=== PATIENT | female | born 1965 | race Caucasian/White ===

== ENCOUNTER 2016-08-04 19:59 | Emergency (ER) | payer MEDICAID ==
--- NOTE | 2016-08-04 20:59 | ER Document Report ---
ED Medical Screen (RME) - General Stated Complaint: BACK PAIN,URINARY ISSUES Notes: patient is a 51 year old female p/w chronic back pain from bulging disc and skin crawling feeling, no evidence of rash. Patient states that this sensation is not new for her and her previous medications have managed these symptoms patient admits to urinary frequency, urgency without pyuria, hematuria. over the past two days admits to loose bm's that started today saturation is 97% on room air, not 87% as documented on captured vitals. I have greeted and performed a rapid initial assessment of this patient. A comprehensive ED assessment and evaluation of the patient, analysis of test results and completion of the medical decision making process will be conducted by additional ED providers. TRAVEL OUTSIDE OF THE [place] IN LAST 30 DAYS: No - Related Data Allergies/Adverse Reactions: No Known Allergies Allergy (Unverified 04/27/11 21:31) Past Medical History - Past Medical History Cardiac Medical History: Reports: Hx Hypertension - on meds Denies: Hx Coronary Artery Disease Pulmonary Medical History: Denies: Hx Asthma, Hx Bronchitis, Hx COPD, Hx Pneumonia Neurological Medical History: Denies: Hx Cerebrovascular Accident, Hx Seizures Musculoskeltal Medical History: Denies Hx Arthritis Past Surgical History: Reports: Hx Section - x 2 - Immunizations Hx Diphtheria, Pertussis, Tetanus Vaccination: Yes Physical Exam - Vital signs Vitals: Temp Pulse Resp BP Pulse Ox 98.0 F 87 16 147/75 H 87 L 08/04/16 20:37 08/04/16 20:37 08/04/16 20:37 08/04/16 20:37 08/04/16 20:37 Course - Vital Signs Vital signs: Temp Pulse Resp BP Pulse Ox 98.0 F 87 16 147/75 H 87 L 08/04/16 20:37 08/04/16 20:37 08/04/16 20:37 08/04/16 20:37 08/04/16 20:37
[2016-08-04] MEDS ORDERED: NAPROXEN 250 MG TABLET PO ONE (21:00)
[2016-08-04 21:26] LABS: APPEARANCE,URINE CLOUDY; BILIRUBIN,URINE NEGATIVE (NEGATIVE); GLUCOSE, URINE NEGATIVE (NEGATIVE); KETONES,URINE NEGATIVE (NEGATIVE); LEUKOCYTE ESTERASE,URINE LARGE (NEGATIVE); NITRITE,URINE NEGATIVE (NEGATIVE); PROTEIN,URINE NEGATIVE (NEGATIVE); URINE SPECIFIC GRAVITY 1.014; UROBILINOGEN,URINE NEGATIVE mg/dL (<2.0)
--- NOTE | 2016-08-04 22:09 | ER Document Report ---
HPI - HPI Patient complains to provider of: urinary frequency, chronic back pain Onset: Other - 1-2 days Quality of pain: Achy Severity: Severe Pain Level: 4 Context: She presents to the emergency department with complaints of chronic back pain, feels like bugs crawling on her legs and urinary frequency. She reports chronic back pain and restless legs for over a year. She also reports urinary frequency for the past day or 2. She denies pain with void. She denies fever vomiting. She reports she is waiting for her Medicaid to get approved and she has not had her medications since May. Associated Symptoms: None Exacerbated by: Denies Relieved by: Denies Similar symptoms previously: Yes Recently seen / treated by doctor: No - REPRODUCTIVE LMP: 2014 Reproductive: DENIES: : - DERM Skin Color: Normal Past Medical History - General Information source: Patient Last Menstrual Period: 08/2014 - Social History Smoking Status: Former Smoker Chew tobacco use (# tins/day): No Frequency of alcohol use: None Drug Abuse: None Occupation: none Lives with: Family Family History: Other - restless legs Patient has suicidal ideation: No Patient has homicidal ideation: No - Past Medical History Cardiac Medical History: Reports: Hx Hypertension - on meds Denies: Hx Coronary Artery Disease Pulmonary Medical History: Denies: Hx Asthma, Hx Bronchitis, Hx COPD, Hx Pneumonia Neurological Medical History: Denies: Hx Cerebrovascular Accident, Hx Seizures Renal/ Medical History: Denies: Hx Peritoneal Dialysis Musculoskeltal Medical History: Denies Hx Arthritis Psychiatric Medical History: Reports: Hx Anxiety, Hx Depression, Hx Post Traumatic Stress Disorder Past Surgical History: Reports: Hx Section - x 2, Hx Gynecologic Surgery - essure - Immunizations Hx Diphtheria, Pertussis, Tetanus Vaccination: Yes Vertical Provider Document - CONSTITUTIONAL Agree With Documented VS: Yes Exam Limitations: No Limitations General Appearance: WD/WN, No Apparent Distress - INFECTION CONTROL TRAVEL OUTSIDE OF THE [place] IN LAST 30 DAYS: No - HEENT HEENT: Atraumatic, Normocephalic - NECK Neck: Normal Inspection, Supple - RESPIRATORY Respiratory: Breath Sounds Normal, No Respiratory Distress O2 Sat by Pulse Oximetry: 97 - CARDIOVASCULAR Cardiovascular: Regular Rate - GI/ABDOMEN Gastrointestinal: Abdomen Non-Tender - BACK Back: Normal Inspection - No obvious deformity no weakness good distal movement and sensation patient reports pain mostly on her right low back - MUSCULOSKELETAL/EXTREMETIES Musculoskeletal/Extremeties: MAEWREGGIE - NEURO Level of Consciousness: Awake, Alert, Appropriate Motor/Sensory: No Motor Deficit - DERM Integumentary: Warm, Dry Adult Front & Back Diagram: 1 - c/o chronic low back pain Course - Re-evaluation Re-evalutation: 08/04/16 While I was discussing plan of care with patient, patient access came in the room and informed the patient that her Medicaid has been approved. Patient is very thankful, tearful. Pt prescribed a xanax dose and septra here. She was instructed on signs and symptoms of allergic reaction to Septra. She verbalized understanding to all instructions. Patient is very excited that she can now follow up with her doctor. - Vital Signs Vital signs: Temp Pulse Resp BP Pulse Ox 98.0 F 87 16 147/75 H 97 08/04/16 20:37 08/04/16 20:37 08/04/16 20:59 08/04/16 20:37 08/04/16 20:59 - Laboratory Laboratory results interpreted by me: 08/04/16 21:05 Urine Blood SMALL H Ur Leukocyte Esterase LARGE H Discharge - Discharge Clinical Impression: Urinary frequency, Elevated blood pressure reading UTI (urinary tract infection) Qualifiers: Urinary tract infection type: site unspecified Hematuria presence: with hematuria Qualified Code(s): N39.0 - Urinary tract infection, site not specified ; R31.9 - Hematuria, unspecified Chronic back pain Qualifiers: Back pain location: low back pain Back pain laterality: right Sciatica presence : without sciatica Qualified Code(s): M54.5 - Low back pain; G89.29 - Other chronic pain Condition: Stable Disposition: HOME, SELF-CARE Instructions: Trimethoprim-Sulfa ([facility]), Urinary Tract Infection ([facility]), Chronic Back Pain ([facility]) Additional Instructions: *You have been evaluated for urinary frequency, UTI *Take medication as prescribed *Push fluids *Follow up with a primary care provider within one week for recheck *Plan urine recheck in one week *Return to ED for worsening condition, changes, needs Monitor your blood pressure. Your blood pressure was elevated today. This may be because you were anxious, in pain or because you need medication. It is important to follow up with your primary care provider for full evaluation. Prescriptions: Sulfamethoxazole/Trimethoprim [Bactrim Ds Tablet] 1 each PO BID #10 tablet Forms: Elevated Blood Pressure
[2016-08-04] MEDS ORDERED: ALPRAZOLAM 0.5 MG TABLET PO ONE (22:10)
[2016-08-04] MEDS ORDERED: SULFAMETHOXAZOLE/TRIMETHOPRIM 800-160 MG TABLET PO ONE (22:10)
[2016-08-04 22:33] VITALS: BP 143/92
== END 2016-08-04 22:33 | disposition home or self-care (01) ==
LOC: ER 19:59
DX: N39.0 Urinary tract infection, site not specified (principal); R35.0 Frequency of micturition; M54.5 Low back pain; R03.0 Elevated blood-pressure reading, without diagnosis of hypertension; M54.9 Dorsalgia, unspecified; G89.29 Other chronic pain; Z87.891 Personal history of nicotine dependence
CPT/HCPCS: 99283; 87086; 81025; 87088; 81001; J3490 ×3

== ENCOUNTER → 2016-08-22 | Outpatient (CLI) | payer MEDICAID | LOC: WI 09:47 | PROVIDERS: ATTEND Internal Medicine | DX: Z12.31 Encounter for screening mammogram for malignant neoplasm of breast (principal); M54.16 Radiculopathy, lumbar region | CPT/HCPCS: 72148; G0202; 77067 ==

== ENCOUNTER 2017-07-13 09:04 | Emergency (ER) | payer SELFPAY ==
--- NOTE | 2017-07-13 09:40 | ER Document Report ---
ED General - General Chief Complaint: Chest Pain Stated Complaint: CHEST PAIN Time Seen by Provider: 07/13/17 09:39 TRAVEL OUTSIDE OF THE [place] IN LAST 30 DAYS: No - HPI Patient complains to provider of: denies chest pain Notes: Patient denies chest pain to me. Patient states her main concern is her throbbing pounding headache 10/10 without radiation nothing made it better or worse. Started 2 days ago. Patient also has had a cough and her chronic back pain has been exacerbated as has her fibromyalgia. Patient has been out of medications for 2 months because her Medicaid lapsed she has not been to follow- up with family doctor because of the request for co-pay at that office. Presents to the emergency department looking for medications refill and symptom relief. - Related Data Allergies/Adverse Reactions: No Known Allergies Allergy (Verified 08/04/16 21:48) Past Medical History - Social History Smoking Status: Unknown if Ever Smoked Family History: Other - restless legs - Past Medical History Cardiac Medical History: Reports: Hx Hypertension - on meds Denies: Hx Coronary Artery Disease Pulmonary Medical History: Denies: Hx Asthma, Hx Bronchitis, Hx COPD, Hx Pneumonia Neurological Medical History: Denies: Hx Cerebrovascular Accident, Hx Seizures Renal/ Medical History: Denies: Hx Peritoneal Dialysis Musculoskeltal Medical History: Denies Hx Arthritis Psychiatric Medical History: Reports: Hx Anxiety, Hx Depression, Hx Post Traumatic Stress Disorder Past Surgical History: Reports: Hx Section - x 2, Hx Gynecologic Surgery - essure - Immunizations Hx Diphtheria, Pertussis, Tetanus Vaccination: Yes Review of Systems - Review of Systems Constitutional: No symptoms reported EENT: No symptoms reported Cardiovascular: No symptoms reported Respiratory: Cough Gastrointestinal: No symptoms reported Genitourinary: No symptoms reported Female Genitourinary: No symptoms reported Musculoskeletal: Back pain, Muscle pain Skin: No symptoms reported Hematologic/Lymphatic: No symptoms reported Neurological/Psychological: No symptoms reported Physical Exam - Vital signs Vitals: Temp Pulse Resp BP Pulse Ox 97.6 F 97 20 91/42 L 93 07/13/17 09:19 07/13/17 09:19 07/13/17 09:19 07/13/17 09:19 07/13/17 09:19 Course - Re-evaluation Re-evalutation: 07/13/17 09:49 Morbidly obese female BMI greater than 50 presents with a constellation of long- standing chronic issues. Has not been able to see her family doctor for months been out of her pain medication. 07/13/17 11:25 Patient presents with some vague complaints. Chest x-ray reading for possible pneumonia left lower lobe. Extensive lab workup unremarkable, no leukocytosis or any other issues. Given fluid resuscitation, headache cocktail feeling much improved will be discharged home with prescription for doxycycline and follow- up with her family doctor given strict return precautions - Vital Signs Vital signs: Temp Pulse Resp BP Pulse Ox 97.6 F 97 16 96/53 L 93 07/13/17 09:19 07/13/17 09:19 07/13/17 10:02 07/13/17 10:02 07/13/17 10:02 - Laboratory Result Diagrams: 07/13/17 09:50 07/13/17 09:50 Laboratory results interpreted by me: 07/13/17 07/13/17 09:50 09:50 Seg Neutrophils % 86.0 H Lymphocytes % 7.5 L Absolute Neutrophils 8.8 H Sodium 135.1 L Potassium 3.5 L Glucose 209 H - EKG Interpretation by Me Additional EKG results interpreted by me: 07/13/17 09:51 Normal sinus 97 bpm, no ST elevations or depressions, normal QRS, no pathologic T-wave inversions Discharge - Discharge Clinical Impression: Pneumonia Qualifiers: Pneumonia type: due to unspecified organism Laterality: left Lung location: lower lobe of lung Qualified Code(s): J18.1 - Lobar pneumonia, unspecified organism Condition: Stable Disposition: HOME, SELF-CARE Instructions: Viral Pneumonia ([facility]), Pneumonia ([facility]) Prescriptions: Doxycycline Hyclate 100 mg PO BID #14 capsule
[2017-07-13] MEDS ORDERED: METOCLOPRAMIDE HCL INJ/PF 10 MG/2 ML SDV IV ONE (09:46)
[2017-07-13] MEDS ORDERED: ACETAMINOPHEN 325 MG TABLET PO ONE (09:46)
[2017-07-13] MEDS ORDERED: NORMAL SALINE 1000 ML 1,000 ML IV ONE (09:46)
[2017-07-13] MEDS ORDERED: DIPHENHYDRAMINE HCL 50 MG/ML VIAL IV ONE (09:47)
[2017-07-13 10:13] LABS: ABSOLUTE BASOPHILS # (AUTO) 0.1 10^3/uL (0.0-0.2); ABSOLUTE LYMPHOCYTES (AUTO) 0.8 10^3/uL (0.5-4.7); ABSOLUTE MONOCYTES (AUTO) 0.6 10^3/uL (0.1-1.4); ABSOLUTE NEUT (AUTO) 8.8 10^3/uL (1.7-8.2); BASOPHILS % (AUTO) 0.5 % (0-2); EOSINOPHILS % (AUTO) 0.3 % (0-6); HEMATOCRIT 39.4 % (36.0-47.0); HEMOGLOBIN 13.3 g/dL (12.0-15.5); LYMPHOCYTES % (AUTO) 7.5 % (13-45); MEAN CORPUSCULAR HEMOGLOBIN 29.1 pg (27.0-33.4); MEAN CORPUSCULAR HGB CONC 33.8 g/dL (32.0-36.0); MEAN CORPUSCULAR VOLUME 86 fl (80-97); MONOCYTES % (AUTO) 5.7 % (3-13); PLATELET COUNT 258 10^3/uL (150-450); RED BLOOD COUNT 4.57 10^6/uL (3.72-5.28); TOTAL CELLS COUNTED % (AUTO) 100 %; WHITE BLOOD COUNT 10.3 10^3/uL (4.0-10.5)
--- NOTE | 2017-07-13 10:31 | RADIOLOGY REPORT (SQ) ---
EXAM DESCRIPTION: CHEST PA/LAT COMPLETED DATE/TIME: 07/13/2017 10:14 am REASON FOR STUDY: cough COMPARISON: 04/27/2011 EXAM PARAMETERS: NUMBER OF VIEWS: two views TECHNIQUE: Digital Frontal and Lateral radiographic views of the chest acquired. RADIATION DOSE: NA LIMITATIONS: none FINDINGS: LUNGS AND PLEURA: Minimal parenchymal opacity in the left midzone. Right lung is clear. MEDIASTINUM AND HILAR STRUCTURES: No masses or contour abnormalities. HEART AND VASCULAR STRUCTURES: Heart normal size. No evidence for failure. BONES: No acute findings. HARDWARE: None in the chest. OTHER: No other significant finding. IMPRESSION: Minimal parenchymal opacity in the left midzone. TECHNICAL DOCUMENTATION: JOB ID: [id number] [employer]- All Rights Reserved
[2017-07-13 10:37] LABS: ALANINE AMINOTRANSFERASE 37 U/L (9-52); ALBUMIN 3.9 g/dL (3.5-5.0); ALKALINE PHOSPHATASE 112 U/L (38-126); ANION GAP 10 (5-19); ASPARTATE AMINO TRANSFERASE 28 U/L (14-36); BILIRUBIN,DIRECT 0.2 mg/dL (0.0-0.4); BILIRUBIN,TOTAL 1.3 mg/dL (0.2-1.3); BLOOD UREA NITROGEN 10 mg/dL (7-20); CALCIUM 9.4 mg/dL (8.4-10.2); CARBON DIOXIDE 24 mmol/L (22-30); CHLORIDE 101 mmol/L (98-107); CREATINE KINASE 35 U/L (30-135); GLUCOSE 209 mg/dL (75-110); LIPASE 51.2 U/L (23-300); POTASSIUM 3.5 mmol/L (3.6-5.0); SODIUM 135.1 mmol/L (137-145); TOTAL PROTEIN 6.9 g/dL (6.3-8.2)
[2017-07-13 11:46] VITALS: BP 116/58
--- NOTE | 2017-07-14 11:08 | EKG REPORT ---
SEVERITY:- ABNORMAL ECG - SINUS RHYTHM VENTRICULAR PREMATURE COMPLEX PROBABLE LEFT ATRIAL ABNORMALITY PROBABLE INFERIOR INFARCT, AGE INDETERMINATE : Confirmed by: Bethany Alamo 14-Jul-2017 11:07:15
== END 2017-07-13 11:48 | disposition home or self-care (01) ==
LOC: ER 09:04
DX: J18.1 Lobar pneumonia, unspecified organism (principal); R51 Headache; R05 Cough; M79.7 Fibromyalgia; M54.9 Dorsalgia, unspecified; G89.29 Other chronic pain; I10 Essential (primary) hypertension
CPT/HCPCS: 93005; 99285; 96361; 96374; 96375; 36415; 82550; 83690; 85025; 80053; 84484; 71046; 93010; J1200; J2765; J7030

== ENCOUNTER 2018-07-02 22:51 | Emergency (ER) | payer SELFPAY ==
[2018-07-03] MEDS ORDERED: DIPH/PERTUSS(ACELL)/TETANUS VAC/PF 0.5 ML SYR (>=10YO) IM ONE (00:32)
[2018-07-03] MEDS ORDERED: LIDOCAINE 1% INJ-PF (10 MG/ML) 30 ML SDV INJ ONE (01:08)
[2018-07-03] MEDS ORDERED: HYDROCODONE/ACETAMINOPHEN 5-325 MG TABLET PO ONE (01:09)
--- NOTE | 2018-07-03 01:46 | RADIOLOGY REPORT (SQ) ---
EXAM DESCRIPTION: XR HAND 1-2 VIEWS COMPLETED DATE/TME: 07/03/2018 00:00 CLINICAL HISTORY: 52 years, Female, r/o FB COMPARISON: None. FINDINGS: No fracture or dislocation. Soft tissues are unremarkable. No radiopaque foreign bodies. IMPRESSION: No acute abnormality.
--- NOTE | 2018-07-03 02:06 | ER Document Report ---
HPI - HPI Time Seen by Provider: 07/03/18 00:55 Pain Level: 5 Context: Patient is a 52-year-old female who presents to the emergency department with a chief complaint of a cut to her left hand. The cut is on the medial aspect of the PIP joint. She was using a knife to cut and avocado and sliced her finger. This happened at 2230 this evening. She does not know when her last tetanus shot was. She states the pain is in excruciating pain. She has not taken any med ication to help with her symptoms. - REPRODUCTIVE Reproductive: DENIES: : Past Medical History - Social History Smoking Status: Never Smoker Frequency of alcohol use: Occasional Family History: Other - restless legs Patient has suicidal ideation: No Patient has homicidal ideation: No - Past Medical History Cardiac Medical History: Reports: Hx Hypertension - on meds Denies: Hx Coronary Artery Disease Pulmonary Medical History: Denies: Hx Asthma, Hx Bronchitis, Hx COPD, Hx Pneumonia Neurological Medical History: Denies: Hx Cerebrovascular Accident, Hx Seizures Renal/ Medical History: Denies: Hx Peritoneal Dialysis Musculoskeletal Medical History: Denies Hx Arthritis Psychiatric Medical History: Reports: Hx Anxiety, Hx Depression, Hx Post Traumatic Stress Disorder Past Surgical History: Reports: Hx Section - x 2, Hx Gynecologic Surgery - essure - Immunizations Hx Diphtheria, Pertussis, Tetanus Vaccination: Yes Vertical Provider Document - INFECTION CONTROL TRAVEL OUTSIDE OF THE [place] IN LAST 30 DAYS: No - HEENT HEENT: Atraumatic, Normocephalic - NECK Neck: Normal Inspection - RESPIRATORY Respiratory: No Respiratory Distress - CARDIOVASCULAR Cardiovascular: Regular Rate - MUSCULOSKELETAL/EXTREMETIES Musculoskeletal/Extremeties: FROM - NEURO Level of Consciousness: Awake, Alert, Appropriate Motor/Sensory: No Motor Deficit, No Sensory Deficit - DERM Integumentary: Warm, Dry Course - Re-evaluation Re-evalutation: 07/03/18 Patient's x-ray is negative for any acute fracture or foreign body. She had 2 stitches placed to the PIP joint of her left middle finger. She tolerated the procedure well. She will be started on Keflex for prophylactic antibiotic treatment, since her laceration is on her hand and she was cut with a knife. Patient is able to move all digits normally. I do not suspect a tendon injury at this time. Verbal discharge instructions were given to the patient. They verbalized understanding. They are stable for discharge. Discharge - Discharge Clinical Impression: Laceration Condition: Stable Disposition: HOME, SELF-CARE Instructions: Laceration Care ([facility]), Prophylactic Antibiotic ([facility]), Tetanus Immunization Given ([facility]) Additional Instructions: Please return to your primary doctor, the ED, or an urgent care in 7 days for suture removal. Return immediately if you develop spreading redness around the wound, pus from the wound, worsening pain, or a fever of >100.4. Keep the area clean and dry. Wash gently with soap and water twice daily and cover the area with a Band-Aid. You have been given antibiotics to prevent infection. Please take all the antibiotic as prescribed. Prescriptions: Cephalexin Monohydrate [Keflex 500 mg Capsule] 500 mg PO Q6H 5 Days capsule Referrals: RENETTA WRIGHT MD [Primary Care Provider] - Follow up as needed
[2018-07-03 02:33] VITALS: BP 140/74
== END 2018-07-03 02:34 | disposition home or self-care (01) ==
LOC: ER 22:51
DX: S61.412A Laceration without foreign body of left hand, initial encounter (principal); W26.0XXA Contact with knife, initial encounter; Y93.G1 Activity, food preparation and clean up; I10 Essential (primary) hypertension; Z23 Encounter for immunization
CPT/HCPCS: 99283; 73120; 90715; J3490